=== PATIENT | male | born 1940 | race Caucasian/White ===

== ENCOUNTER 2017-04-14 11:10 | Outpatient (CLI) | payer MEDICARE, OTHER ==
--- NOTE | 2017-04-14 13:06 | Diagnostic Imaging Report ---
Indication: Cough Technique: 2 views of the chest Comparison: None Findings: The lungs and pleural spaces are clear. The heart size is normal. There are left axillary surgical clips. Unusual densely calcified mass is seen in the dome of the liver. Impression: No acute process Unusual densely calcified mass in the right hepatic lobe, suspect postinflammatory Other findings as noted
== END 2017-04-14 13:10 | disposition home or self-care (01) ==
LOC: RAD 11:10
DX: R05 Cough (principal)
CPT/HCPCS: 71046